=== PATIENT | male | born 1940 | race Caucasian/White ===

== ENCOUNTER 2016-06-16 18:57 | Emergency (ER) | payer OTHER ==
[~2016-06-16] VITALS: Ht 180.3 cm; Wt 83.2 kg
[~2016-06-16 18:57] MED LIST: ALLOPURINOL100 MG PO; ASPIRIN81 M1 PO; ASPIRIN81 M2 PO; AVAPRO150 MG PO; CLINDAMYCIN HC300 MG PO; FISH OIL300 MG PO; FLOMAX0.4 MG PO; KEFLEX500 MG PO; LEVAQUIN750 MG PO; LEVOFLOXACIN750 MG PO; METOPROLOL TART50 MG PO; MILK OF MAGNESI10 ML PO; Milk Of Magnesia,MOM PO; PYRIDIUM100 MG PO; SIMVASTATIN40 M1 PO; TYLENOL REGULA325 MG PO; ULTRAM50 MG PO; metoprolol PO
[2016-06-16 19:46] LABS: HEMATOCRIT 44.1 % (38.0-50.0); MCH 30.2 PG (29.0-34.0); MCV 88.9 FL (86-99); MEAN PLAT.VOLUME 9.5 uM^3 (9.0-12.4); PLATELET COUNT 232 K/uL (156-360); RBC DIS.WIDTH-SD 42.5 % (39-53); RED BLOOD COUNT 4.96 M/uL (4.00-5.50); WHITE BLOOD COUNT 8.8 K/uL (4.1-10.2)
[2016-06-16 19:59] LABS: CHLORIDE 112 mEq/L (99-109); POTASSIUM 4.5 mEq/L (3.7-5.4); SODIUM 138 mEq/L (136-147)
[2016-06-16 20:01] LABS: GLUCOSE 115 mg/dL (70-99)
[2016-06-16 20:02] LABS: ANION GAP 9 MEQ/L (2-14)
[2016-06-16 20:05] LABS: GFR ESTIMATE (CALCULATED) 45 mL/min/
[2016-06-16 20:06] LABS: UREA NITROGEN (BUN) 37 mg/dL (9-23)
[2016-06-16] MEDS ORDERED: MEDROL DOSEPAK4 MG PO (21:35)
[2016-06-16] MEDS ORDERED: FLEXERIL10 MG PO (21:35)
[2016-06-16] MEDS ORDERED: NAPROSYN500 MG PO (21:35)
[2016-06-16 22:16] VITALS: BP 138/83
== END 2016-06-16 22:17 | disposition home or self-care (01) ==
LOC: EME 18:57
PROVIDERS: Emergency Medicine
DX: M54.5 Low back pain (principal); E78.5 Hyperlipidemia, unspecified; I10 Essential (primary) hypertension; Z95.1 Presence of aortocoronary bypass graft; Z98.61 Coronary angioplasty status; Z79.82 Long term (current) use of aspirin
CPT/HCPCS: 72131; 74176; 80048; 85027; 99281; 99284; J1100